=== PATIENT | male | born 1970 | race Caucasian/White ===

== ENCOUNTER 2017-10-09 10:56 | Inpatient (IN) | payer OTHER ==
[~2017-10-09] VITALS: Ht 175.3 cm; Wt 115.5 kg
[~2017-10-09 10:56] MED LIST: ALDACTONE25 MG PO; AMARYL4 MG PO; ASPIRIN325 MG PO; BAYER PM CAPLE1 EACH PO; CARVEDILOL3.125 MG PO; DIGOXIN125 MCG PO; FUROSEMIDE40 MG PO; HUMALOG100 UNIT/1 SC; KLOR-CON20 MEQ PO; LANTUS (UNITS)1 UNIT SC; LEVOTHYROXINE88 MCG PO; LOSARTAN POTASS50 MG PO; METFORMIN HCL1000 MG PO; MONOPRIL10 MG PO; PRAVACHOL20 MG PO; TOPROL XL25 MG PO; TOUJEO SOL300 UNIT/1 SC
[2017-10-09 11:57] LABS: HEMATOCRIT 51.3 % (38.0-50.0); MCH 29.4 PG (29.0-34.0); MCHC 33.1 G/DL (30.0-36.0); MCV 88.6 FL (86-99); NRBC (%) 0.4 /100 WBC (0-0); PLATELET COUNT 242 K/uL (156-360); RBC DIS.WIDTH-CV 16.4 % (11.8-14.6); RBC DIS.WIDTH-SD 50.4 % (39-53); RED BLOOD COUNT 5.79 M/uL (4.00-5.50); WHITE BLOOD COUNT 8.3 K/uL (4.1-10.2)
[2017-10-09 12:20] LABS: TROP-I INTERPRETATION NEGATIVE; TROPONIN-I 0.04 ng/mL (0.0-0.30)
[2017-10-09 12:27] LABS: ANION GAP 11 MEQ/L (2-14); CHLORIDE 90 MEQ/L (99-109); POTASSIUM 3.5 MEQ/L (3.7-5.4); SAMPLE HEMOLYSIS CHECK 0; SAMPLE ICTERIC CHECK 0; SAMPLE LIPEMIA CHECK 0; SODIUM 134 MEQ/L (136-147)
[2017-10-09 12:33] LABS: GFR ESTIMATE (CALCULATED) > 59 mL/min/; GLUCOSE 267 mg/dL (70-99); UREA NITROGEN (BUN) 34 mg/dL (9-23)
[2017-10-09] MEDS ORDERED: ENTRESTO 49 MG1 EACH PO (14:22)
[2017-10-09] MEDS ORDERED: NEURONTIN300 MG PO (14:22)
[2017-10-09] MEDS ORDERED: TOPROL XL200 MG PO (14:22)
[2017-10-09 14:34] LABS: MAGNESIUM 1.7 mg/dl (1.3-2.7)
[2017-10-09 15:45] VITALS: BP 103/67
[2017-10-09 17:49] LABS: POINT-OF-CARE METER ID UU14174225
[2017-10-09 19:02] LABS: TROP-I INTERPRETATION NEGATIVE; TROPONIN-I 0.04 ng/mL (0.0-0.30)
[2017-10-09 19:23] VITALS: BP 140/99
[2017-10-09 20:58] LABS: POINT-OF-CARE METER ID UU14174225
[2017-10-09 23:33] VITALS: BP 111/75
[2017-10-10 01:20] LABS: POINT-OF-CARE METER ID UU13113717; POINT-OF-CARE USER ID 603211116
[2017-10-10 01:33] LABS: TROP-I INTERPRETATION NEGATIVE; TROPONIN-I 0.04 ng/mL (0.0-0.30)
[2017-10-10 03:50] VITALS: BP 99/64
[2017-10-10 06:36] LABS: ANION GAP 10 MEQ/L (2-14); CHLORIDE 92 MEQ/L (99-109); GFR ESTIMATE (CALCULATED) > 59 mL/min/; GLUCOSE 82 mg/dL (70-99); POTASSIUM 3.7 MEQ/L (3.7-5.4); SAMPLE HEMOLYSIS CHECK 0; SAMPLE ICTERIC CHECK 0; SAMPLE LIPEMIA CHECK 0; SODIUM 138 MEQ/L (136-147); UREA NITROGEN (BUN) 35 mg/dL (9-23)
[2017-10-10 07:37] LABS: BASOPHIL COUNT 0.1 K/uL (0-0.1); EOSINOPHIL (%) 2.1 % (0-5); EOSINOPHIL COUNT 0.2 K/uL (0-0.3); HEMATOCRIT 52.2 % (38.0-50.0); IMMATURE GRANULOCYTE (%) 0.5 % (0.0-0.7); INSTRUMENT ABS NEUTROPHIL CT 4.8 K/uL; LYMPHOCYTE COUNT 2.2 K/uL (1.0-2.8); MCH 28.7 PG (29.0-34.0); MCHC 31.8 G/DL (30.0-36.0); MCV 90.3 FL (86-99); MEAN PLAT.VOLUME 12.1 uM^3 (9.0-12.4); MONOCYTE (%) 10.3 % (3-12); MONOCYTE COUNT 0.8 K/uL (0-0.8); NEUTROPHIL (%) 58.8 % (45-76); NEUTROPHIL COUNT 4.8 K/uL (1.8-6.4); NRBC (%) 0.5 /100 WBC (0-0); PLATELET COUNT 259 K/uL (156-360); RBC DIS.WIDTH-CV 16.3 % (11.8-14.6); RBC DIS.WIDTH-SD 51.3 % (39-53); RED BLOOD COUNT 5.78 M/uL (4.00-5.50); WHITE BLOOD COUNT 8.1 K/uL (4.1-10.2)
[2017-10-10 08:00] VITALS: BP 122/81
[2017-10-10 12:00] VITALS: BP 112/77
[2017-10-10 12:31] LABS: POINT-OF-CARE METER ID UU13113717
[2017-10-10] MEDS ORDERED: FURO40I IV (15:18)
[2017-10-10 17:20] VITALS: BP 108/69
[2017-10-10 17:21] LABS: POINT-OF-CARE METER ID UU14174225
[2017-10-10 20:13] LABS: POINT-OF-CARE METER ID UU14174225
== END 2017-10-10 19:59 | disposition short-term general hospital (02) | DRG 291 ==
LOC: EME 10:56 → 5SOUTH 13:39 → EDOF 13:39 → ENRESERV 13:46 → 5SOUTH 15:37
PROVIDERS: Hospitalist; Internal Medicine
DX: I11.0 Hypertensive heart disease with heart failure (principal); I50.23 Acute on chronic systolic (congestive) heart failure; J18.9 Pneumonia, unspecified organism; E11.40 Type 2 diabetes mellitus with diabetic neuropathy, unspecified; G62.9 Polyneuropathy, unspecified; I27.20 Pulmonary hypertension, unspecified; I08.1 Rheumatic disorders of both mitral and tricuspid valves; I37.1 Nonrheumatic pulmonary valve insufficiency; R06.03 Acute respiratory distress; I25.10 Atherosclerotic heart disease of native coronary artery without angina pectoris; I25.5 Ischemic cardiomyopathy; I25.2 Old myocardial infarction; Z95.810 Presence of automatic (implantable) cardiac defibrillator; Z95.1 Presence of aortocoronary bypass graft; Z87.891 Personal history of nicotine dependence; Z79.4 Long term (current) use of insulin; Z79.82 Long term (current) use of aspirin
CPT/HCPCS: 36415; 71020; 80048; 82948; 83735; 83880; 84484; 85025; 85027; 87040; 93005; 93306; 99281; 99285; J0456; J0696; J1650; J1815; J1940